=== PATIENT | male | born 1985 | race Caucasian/White ===

== ENCOUNTER 2016-07-15 14:55 | Observation (INO) | payer OTHER ==
[2016-07-15 15:29] LABS: ABSOLUTE BASOPHILS # (AUTO) 0.1 10^3/uL (0.0-0.2); ABSOLUTE EOSINOPHILS # (AUTO) 0.3 10^3/uL (0.0-0.6); ABSOLUTE LYMPHOCYTES (AUTO) 2.6 10^3/uL (0.5-4.7); ABSOLUTE NEUT (AUTO) 10.6 10^3/uL (1.7-8.2); BASOPHILS % (AUTO) 0.7 % (0-2); HEMATOCRIT 49.7 % (37.9-51.0); HEMOGLOBIN 17.4 g/dL (13.5-17.0); HGB HCT DIFFERENCE 2.5; LYMPHOCYTES % (AUTO) 17.5 % (13-45); MEAN CORPUSCULAR HGB CONC 34.9 g/dL (32.0-36.0); MEAN CORPUSCULAR VOLUME 92 fl (80-97); MONOCYTES % (AUTO) 7.1 % (3-13); RED BLOOD COUNT 5.43 10^6/uL (4.35-5.55); RED CELL DISTRIBUTION WIDTH 13.1 % (11.5-14.0); SEGMENTED NEUTROPHILS % (AUTO) 72.7 % (42-78); WHITE BLOOD COUNT 14.6 10^3/uL (4.0-10.5)
[2016-07-15 15:46] LABS: APPEARANCE,URINE CLEAR; BILIRUBIN,URINE NEGATIVE (NEGATIVE); GLUCOSE, URINE NEGATIVE (NEGATIVE); KETONES,URINE NEGATIVE (NEGATIVE); LEUKOCYTE ESTERASE,URINE NEGATIVE (NEGATIVE); NITRITE,URINE NEGATIVE (NEGATIVE); PROTEIN,URINE NEGATIVE (NEGATIVE); URINE SPECIFIC GRAVITY 1.014
[2016-07-15 15:49] LABS: ALANINE AMINOTRANSFERASE 37 U/L (21-72); ALKALINE PHOSPHATASE 56 U/L (38-126); ANION GAP 13 (5-19); ASPARTATE AMINO TRANSFERASE 26 U/L (17-59); BILIRUBIN,TOTAL 0.8 mg/dL (0.2-1.3); BLOOD UREA NITROGEN 9 mg/dL (7-20); CALCIUM 9.6 mg/dL (8.4-10.2); CARBON DIOXIDE 27 mmol/L (22-30); CHLORIDE 104 mmol/L (98-107); CREATININE RESULT 0.71 mg/dL (0.52-1.25); GLUCOSE 94 mg/dL (75-110); POTASSIUM 4.5 mmol/L (3.6-5.0); SODIUM 144.3 mmol/L (137-145); TOTAL PROTEIN 6.8 g/dL (6.3-8.2)
--- NOTE | 2016-07-15 17:45 | PSYCHOLOGICAL NOTE ---
Psych Note - Psych Note Psych Note: Patient is a 31 year old male who presents via [facility] under IVC, petitioned by his for dangerous, threatening behaviors. Patient now satates he is fine and states all of the issues have been addressed. Patient reports he was seen by the [place], and has a job interview tomorrow and needs his papers for discharge. Patient denies SI/HI. Patient will not actually directly answer any questions, other than to say "fine," or "its been addressed" etc. Patient states he went down hill when he was traveling for work and alone and away from loved ones and supports. Patient states he wants his papers. Note, patient did eventually endorse risk taking behaviors, to include speeding, excessive drinking, 'being back in [place] for a few nights" not fastening his safety harness, etc. Patient would not otherwise elaborate on his symptoms or needs at this time. Patient states he knows this particular individual is a terrorists and knows he was making a pipe bomb. 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 Note, played a recording of patient threatening murder suicide in regards to his girlfriend's friend he thinks is a terrorist. She additionally reports he is irrational and can be violent, towards self, property, people, and animals ( family dogs). She states today he abruptly stated he was returning to [place], and his girlfriend contacted her with concerns for safety. Note, had numerous text messages substantiating concerns. She denies knowing of SA, beyond daily ETOH and chain smoking cigarettes while on his phone outside. She states he returned from [place] to get help 2 weeks ago, and [facility]. Patient is A&O. Mood is anxious and irritable with congruent affect. Patient denies SI/HI. Patient denies A/V H; delusions were noted. Thought processes were guarded. Conversational speech was labile for rate, tone, and prosody. Intellectual abilities were estimated within average range. Attention and focus were fair. Insight, judgment, and impulse control were poor. Posttraumatic Stress Disorder, per history Patient is recommended to remain under IVC and seek 24 hour inpatient psychiatric commitment. Patient is a danger to himself and others. Patient, even while in the Department demonstrates mood lability and struggles to self regulate, demonstrates poor insight and impulse control, and is guarded with his information. While patient does deny the reports of harmful threats, voice recordings and text messages were provided to substantiate these claims. I consulted with Dr. Umana regarding the care and management of this patient. ED MD is in agreement with disposition and recommendations.
[2016-07-15] MEDS: HALOPERIDOL LACTATE INJ 5 MG/1 ML VIAL IM PRN (18:00)
[2016-07-15] MEDS ORDERED: OLANZAPINE 5 MG TABLET PO SCH (18:15)
[2016-07-15] MEDS ORDERED: BENZTROPINE MESYLATE 1 MG TABLET PO SCH (18:15)
[2016-07-15] MEDS ORDERED: OLANZAPINE 5 MG TABLET PO ONE (18:45)
[2016-07-15] MEDS ORDERED: BENZTROPINE MESYLATE 1 MG TABLET PO ONE (18:45)
[2016-07-15 18:48] LABS: URINE BARBITURATES SCREEN NEGATIVE; URINE METHADONE SCREEN NEGATIVE; URINE OPIATES LOW NEGATIVE; URINE PHENCYCLIDINE SCREEN NEGATIVE
[2016-07-15] MEDS ORDERED: DIVALPROEX SODIUM 500 MG TAB.SR.24H PO ONE (19:00)
[2016-07-15] MEDS ORDERED: DIVALPROEX SODIUM 500 MG TAB.SR.24H PO SCH (19:00)
--- NOTE | 2016-07-15 19:08 | ER Document Report ---
ED Psych Disorder / Suicide - General Chief Complaint: Psych Problem Stated Complaint: PSYCH EVAL Notes: The patient is a 31-year-old male, past medical history PTSD, depression, presents on and IVC filled out by his girlfriend after he is having homicidal ideation. He thinks that there is a terrorist up [place] that is building a pipe bomb. His girlfriend has multiple text messages and voicemails that confirm his homicidal ideation. Patient states that he has no SI or HI and that he has a job interview tomorrow. He then states that he was having homicidal ideation , but this is resolving because he is not traveling is much any more. He denies any other medical complaints at this time. TRAVEL OUTSIDE OF THE [place] IN LAST 30 DAYS: No Past Medical History - General Information source: Patient, Relative - Social History Smoking Status: Unknown if Ever Smoked Family History: Reviewed & Not Pertinent Psychiatric Medical History: Reports: Hx Depression - PTSD Review of Systems - Review of Systems Notes: REVIEW OF SYSTEMS: CONSTITUTIONAL: -fevers, -chills EENT: -eye pain, -difficulty swallowing, -nasal congestion CARDIOVASCULAR:-chest pain, -syncope. RESPIRATORY: -cough, -SOB GASTROINTESTINAL: -abdominal pain, - nausea, -vomiting, -diarrhea GENITOURINARY: -dysuria, -hematuria MUSCULOSKELETAL: -back pain, -neck pain SKIN: -rash or skin lesions. HEMATOLOGIC: -easy bruising or bleeding. LYMPHATIC: -swollen, enlarged glands. NEUROLOGICAL: -altered mental status or loss of consciousness, -headache, - neurologic symptoms PSYCHIATRIC: -anxiety, -depression, +HI, -SI ALL OTHER SYSTEMS REVIEWED AND NEGATIVE. Physical Exam - Vital signs Vitals: Temp Pulse Resp BP Pulse Ox 97.5 F 43 L 14 104/62 100 07/15/16 23:24 07/15/16 23:24 07/15/16 23:24 07/15/16 23:24 07/15/16 23:24 - Notes Notes: PHYSICAL EXAMINATION: GENERAL: Well-appearing, well-nourished and in no acute distress. HEAD: Atraumatic, normocephalic. EYES: Pupils equal round and reactive to light, extraocular movements intact, sclera anicteric, conjunctiva are normal. ENT: nares patent, oropharynx clear without exudates. Moist mucous membranes. NECK: Normal range of motion, supple without lymphadenopathy LUNGS: Breath sounds clear to auscultation bilaterally and equal. No wheezes rales or rhonchi. HEART: Bradycardia. Regular rhythm without murmurs ABDOMEN: Soft, nontender, normoactive bowel sounds. No guarding, no rebound. No masses appreciated. EXTREMITIES: Normal range of motion, no pitting or edema. No cyanosis. NEUROLOGICAL: Cranial nerves grossly intact. Normal speech, normal gait. Normal sensory, motor, and reflex exams. PSYCH: Normal mood, normal affect. SKIN: Warm, Dry, normal turgor, no rashes or lesions noted. Course - Re-evaluation Re-evalutation: Patient has sinus bradycardia, but his blood pressures are remaining normal. His EKG shows a sinus bradycardia with diffuse ST elevations, indicative of pericarditis. Patient clinically has no chest pain, shortness of breath and is not acting like a patient with pericarditis. Patient's bradycardia may be normal because he is a athletic, young male. He is asymptomatic with the bradycardia. Patient on IVC. Will continue to uphold IVC due to his homicidal ideation. Psych recommendations include inpatient psychiatric stay due to his unstable mental condition at this time. - Vital Signs Vital signs: Temp Pulse Resp BP Pulse Ox 97.5 F 43 L 12 98/58 L 96 07/15/16 23:24 07/15/16 23:24 07/15/16 23:47 07/15/16 23:48 07/15/16 23:48 - Laboratory Result Diagrams: 07/15/16 15:15 07/15/16 15:15 Laboratory results interpreted by me: 07/15/16 07/15/16 15:15 15:15 WBC 14.6 H Hgb 17.4 H Absolute Neutrophils 10.6 H Urine Urobilinogen 4.0 H - EKG Interpretation by Nv EKG shows normal: Sinus rhythm, [place], Intervals, QRS Complexes, ST-T Waves - diffuse ST elevations, no reciprocal changes Rate: Bradycardia Discharge - Discharge Clinical Impression: Homicidal ideation, PTSD (post-traumatic stress disorder) Condition: Serious Disposition: PSYCH HOSP/UNIT
--- NOTE | 2016-07-15 20:46 | EKG REPORT ---
SEVERITY:- NORMAL ECG - SINUS RHYTHM : Confirmed by: Darshana Loomis MD 15-Jul-2016 20:46:05
[2016-07-16] MEDS ORDERED: NORMAL SALINE 1000 ML 1,000 ML IV ONE (00:26)
--- NOTE | 2016-07-16 08:03 | EKG REPORT ---
SEVERITY:- ABNORMAL ECG - SINUS RHYTHM VENTRICULAR TRIGEMINY ST ELEVATION SUGGESTS NORMAL VARIANT : Confirmed by: Kendall Wylie MD 16-Jul-2016 08:03:22
--- NOTE | 2016-07-16 08:03 | EKG REPORT ---
SEVERITY:- ABNORMAL ECG - SINUS BRADYCARDIA ST ELEVATION SUGGESTS NORMAL VARIANT. : Confirmed by: Kendall Wylie MD 16-Jul-2016 08:02:51
[2016-07-16] MEDS ORDERED: OLANZAPINE 5 MG TABLET PO SCH (10:00)
--- NOTE | 2016-07-16 10:15 | ER Document Report ---
Doctor's Note Notes: 07/16/16 10:13 Rounds: Chart reviewed and patient interviewed. Patient seems to be rather calm , compared to his previous evaluations and notes. Answers questions appropriately. Says he's never had anybody telling he has any problems with his heart. We have noticed sinus bradycardia as well as intermittent ventricular trigeminy on EKGs since he's been here in the emergency department. Patient denies any chest pains or any symptoms suggestive of any heart disease or condition. Other lab findings are a white count of 14,600 without signs of infections anywhere. Also, his hemoglobin is 17.4. All other labs including thyroid function and magnesiums are normal. With the exception of his slower heart rate than normal, in the 40s, patient's vital signs of been normal. Patient appears to be medically stable for transfer or discharge. I'm going to try to get a cardiology consult on this patient to determine the safety of prescribing recommended antipsychotic medications. Marcelo Acosta M.D. 07/16/16 11:19 Gel Coat Sprayer, Dr. Mendoza, recommends patient be admitted to telemetry and monitored while medications are started to make sure he doesn't have an adverse event. Hospitalist notified and patient will be admitted to telemetry.
[2016-07-16] MEDS: BENZTROPINE MESYLATE 1 MG TABLET PO SCH (10:22)
[2016-07-16] MEDS: DIVALPROEX SODIUM 500 MG TAB.SR.24H PO SCH ×2 (10:22→17:59)
[2016-07-16 11:23] LABS: ABSOLUTE BASOPHILS # (AUTO) 0.1 10^3/uL (0.0-0.2); ABSOLUTE EOSINOPHILS # (AUTO) 0.3 10^3/uL (0.0-0.6); ABSOLUTE LYMPHOCYTES (AUTO) 2.2 10^3/uL (0.5-4.7); ABSOLUTE MONOCYTES (AUTO) 0.7 10^3/uL (0.1-1.4); ABSOLUTE NEUT (AUTO) 2.1 10^3/uL (1.7-8.2); EOSINOPHILS % (AUTO) 4.9 % (0-6); HEMATOCRIT 46.1 % (37.9-51.0); HEMOGLOBIN 15.9 g/dL (13.5-17.0); HGB HCT DIFFERENCE 1.6; LYMPHOCYTES % (AUTO) 41.8 % (13-45); MEAN CORPUSCULAR HEMOGLOBIN 31.6 pg (27.0-33.4); MEAN CORPUSCULAR HGB CONC 34.5 g/dL (32.0-36.0); MEAN CORPUSCULAR VOLUME 92 fl (80-97); RED BLOOD COUNT 5.03 10^6/uL (4.35-5.55); RED CELL DISTRIBUTION WIDTH 12.9 % (11.5-14.0); SEGMENTED NEUTROPHILS % (AUTO) 39.3 % (42-78); WHITE BLOOD COUNT 5.3 10^3/uL (4.0-10.5)
[2016-07-16 11:33] LABS: ALANINE AMINOTRANSFERASE 34 U/L (21-72); ALBUMIN 3.3 g/dL (3.5-5.0); ALKALINE PHOSPHATASE 49 U/L (38-126); ANION GAP 7 (5-19); ASPARTATE AMINO TRANSFERASE 22 U/L (17-59); BILIRUBIN,DIRECT 0.1 mg/dL (0.0-0.4); BILIRUBIN,TOTAL 0.8 mg/dL (0.2-1.3); BLOOD UREA NITROGEN 11 mg/dL (7-20); CALCIUM 9.2 mg/dL (8.4-10.2); CARBON DIOXIDE 28 mmol/L (22-30); CHLORIDE 108 mmol/L (98-107); CREATINE KINASE 254 U/L (55-170); CREATININE RESULT 0.65 mg/dL (0.52-1.25); GLUCOSE 105 mg/dL (75-110); POTASSIUM 4.4 mmol/L (3.6-5.0); SODIUM 143.3 mmol/L (137-145); TOTAL PROTEIN 5.8 g/dL (6.3-8.2)
[2016-07-16 11:43] LABS: CREATINE KINASE MB 2.72 ng/mL (<4.55)
[2016-07-16 11:44] LABS: TROPONIN I < 0.012 ng/mL
[2016-07-16 11:58] LABS: ERYTHROCYTE SEDIMENTATION RATE 1 mm/hr (0-15)
--- NOTE | 2016-07-16 13:43 | EKG REPORT ---
SEVERITY:- NORMAL ECG - SINUS RHYTHM WITH PACS. ST ELEV, PROBABLE NORMAL EARLY REPOL PATTERN : Confirmed by: Kendall Wylie MD 16-Jul-2016 13:42:30
[2016-07-16] MEDS: OLANZAPINE 5 MG TABLET PO SCH (13:50)
--- NOTE | 2016-07-16 15:42 | PDOC H&P ---
History of Present Illness History of Present Illness: GULSHAN RUIZ is a 31 year old male past medical history PTSD, depression, presents on and IVC filled out by his girlfriend after he is having homicidal ideation. He thinks that there is a terrorist up [place] that is building a pipe bomb. His girlfriend has multiple text messages and voicemails that confirm his homicidal ideation. Patient states that he has no SI or HI and that he has a job interview tomorrow. He then states that he was having homicidal ideation, but this is resolving because he is not traveling is much any more. He denies any other medical complaints at this time. While being evaluated in the ED patient was noted to be bradycardic with a heart rate in the 40s and at time he was in trigeminy Cardiology consultation was obtained with Dr. Burleson who advised admission for observation And an echocardiogram was ordered Patient has no chest pain no short of breath His EKG is normal ; his initial troponins are normal he was subsequently admitted under hospitalist service to telemetry unit for observation Patient is IVC with a sitter Past Medical History Psychiatric Medical History: Reports: Depression - PTSD Past Surgical History Past Surgical History: Reports: Other - Bilateral cataract surgery Social History Information Source: Patient Smoking Status: Current Every Day Smoker Frequency of Alcohol Use: Occasional Hx Recreational Drug Use: No - Advance Directive Resuscitation Status: Full Code Family History Family History: Reviewed & Not Pertinent Parental Family History Reviewed: Yes Children Family History Reviewed: Yes Sibling(s) Family History Reviewed.: Yes Medication/Allergy Home Medications: Fluoxetine HCl [Prozac] 10 mg PO DAILY 07/16/16 Allergies/Adverse Reactions: lactose Adverse Reaction (Verified 07/16/16 09:13) Review of Systems Constitutional: ABSENT: chills, fever(s), headache(s), weight gain, weight loss Eyes: ABSENT: visual disturbances Ears: ABSENT: hearing changes Cardiovascular: ABSENT: chest pain, dyspnea on exertion, edema, orthropnea, palpitations Respiratory: ABSENT: cough, hemoptysis Gastrointestinal: ABSENT: abdominal pain, constipation, diarrhea, hematemesis, hematochezia, nausea, vomiting Genitourinary: ABSENT: dysuria, hematuria Musculoskeletal: ABSENT: joint swelling Integumentary: ABSENT: rash, wounds Neurological: ABSENT: abnormal gait, abnormal speech, confusion, dizziness, focal weakness, syncope Psychiatric: PRESENT: homidical ideation, suicidal ideation Endocrine: ABSENT: cold intolerance, heat intolerance, polydipsia, polyuria Hematologic/Lymphatic: ABSENT: easy bleeding, easy bruising Physical Exam Vital Signs: Temp Pulse Resp BP Pulse Ox 97.9 F 43 L 13 104/60 97 07/16/16 12:32 07/15/16 23:24 07/16/16 15:01 07/16/16 15:00 07/16/16 15:01 General appearance: PRESENT: no acute distress, well-developed, well-nourished Head exam: PRESENT: atraumatic, normocephalic Eye exam: PRESENT: conjunctiva pink, EOMI, PERRLA. ABSENT: scleral icterus Ear exam: PRESENT: normal external ear exam Mouth exam: PRESENT: moist, tongue midline Neck exam: ABSENT: carotid bruit, JVD, lymphadenopathy, thyromegaly Respiratory exam: PRESENT: clear to auscultation [place]. ABSENT: rales, rhonchi, wheezes Cardiovascular exam: PRESENT: RRR. ABSENT: diastolic murmur, rubs, systolic murmur Pulses: PRESENT: normal dorsalis pedis pul Vascular exam: PRESENT: normal capillary refill GI/Abdominal exam: PRESENT: normal bowel sounds, soft. ABSENT: distended, guarding, mass, organolmegaly, rebound, tenderness Rectal exam: PRESENT: deferred Extremities exam: PRESENT: full ROM. ABSENT: calf tenderness, clubbing, pedal edema Neurological exam: PRESENT: alert, awake, oriented to person, oriented to place , oriented to time, oriented to situation, CN II-XII grossly intact. ABSENT: motor sensory deficit Psychiatric exam: PRESENT: appropriate affect, normal mood. ABSENT: homicidal ideation, suicidal ideation Skin exam: PRESENT: dry, intact, warm. ABSENT: cyanosis, rash Results Laboratory Results: 07/16/16 11:00 07/16/16 11:00 07/15/16 07/15/16 07/15/16 15:15 15:15 15:15 WBC 14.6 H RBC 5.43 Hgb 17.4 H Hct 49.7 MCV 92 MCH 32.0 MCHC 34.9 RDW 13.1 Plt Count 274 Seg Neutrophils % 72.7 Lymphocytes % 17.5 Monocytes % 7.1 Eosinophils % 2.0 Basophils % 0.7 Absolute Neutrophils 10.6 H Absolute Lymphocytes 2.6 Absolute Monocytes 1.0 Absolute Eosinophils 0.3 Absolute Basophils 0.1 Sodium 144.3 Potassium 4.5 Chloride 104 Carbon Dioxide 27 Anion Gap 13 BUN 9 Creatinine 0.71 Est GFR ( Amer) > 60 Est GFR (Non-Af Amer) > 60 Glucose 94 Calcium 9.6 Magnesium Total Bilirubin 0.8 AST 26 ALT 37 Alkaline Phosphatase 56 Total Protein 6.8 Albumin 4.0 TSH Urine Color YELLOW Urine Appearance CLEAR Urine pH 7.0 Ur Specific [place] 1.014 Urine Protein NEGATIVE Urine Glucose (UA) NEGATIVE Urine Ketones NEGATIVE Urine Blood NEGATIVE Urine Nitrite NEGATIVE Ur Leukocyte Esterase NEGATIVE Urine WBC (Auto) 1 Urine RBC (Auto) 0 07/15/16 07/15/16 07/16/16 15:15 15:15 11:00 WBC 5.3 RBC 5.03 Hgb 15.9 Hct 46.1 MCV 92 MCH 31.6 MCHC 34.5 RDW 12.9 Plt Count 232 Seg Neutrophils % 39.3 L Lymphocytes % 41.8 Monocytes % 13.0 Eosinophils % 4.9 Basophils % 1.0 Absolute Neutrophils 2.1 Absolute Lymphocytes 2.2 Absolute Monocytes 0.7 Absolute Eosinophils 0.3 Absolute Basophils 0.1 Sodium Potassium Chloride Carbon Dioxide Anion Gap BUN Creatinine Est GFR ( Amer) Est GFR (Non-Af Amer) Glucose Calcium Magnesium 1.9 Total Bilirubin AST ALT Alkaline Phosphatase Total Protein Albumin TSH 0.68 Urine Color Urine Appearance Urine pH Ur Specific [place] Urine Protein Urine Glucose (UA) Urine Ketones Urine Blood Urine Nitrite Ur Leukocyte Esterase Urine WBC (Auto) Urine RBC (Auto) 07/16/16 11:00 WBC RBC Hgb Hct MCV MCH MCHC RDW Plt Count Seg Neutrophils % Lymphocytes % Monocytes % Eosinophils % Basophils % Absolute Neutrophils Absolute Lymphocytes Absolute Monocytes Absolute Eosinophils Absolute Basophils Sodium 143.3 Potassium 4.4 Chloride 108 H Carbon Dioxide 28 Anion Gap 7 BUN 11 Creatinine 0.65 Est GFR ( Amer) > 60 Est GFR (Non-Af Amer) > 60 Glucose 105 Calcium 9.2 Magnesium Total Bilirubin 0.8 AST 22 ALT 34 Alkaline Phosphatase 49 Total Protein 5.8 L Albumin 3.3 L TSH Urine Color Urine Appearance Urine pH Ur Specific [place] Urine Protein Urine Glucose (UA) Urine Ketones Urine Blood Urine Nitrite Ur Leukocyte Esterase Urine WBC (Auto) Urine RBC (Auto) 03/20/17 03/20/17 11:00 11:00 Creatine Kinase 254 H CK-MB (CK-2) 2.72 Troponin I < 0.012 EKG Comments: Sinus bradycardia Assessment & Plan - Diagnosis (1) Suicidal ideation Is this a current diagnosis for this admission?: Yes (2) Bradycardia Is this a current diagnosis for this admission?: Yes (3) Cardiac arrhythmia Qualifiers: Arrhythmia type: unspecified cardiac arrhythmia Qualified Code(s): I49.9 - Cardiac arrhythmia, unspecified Is this a current diagnosis for this admission?: Yes (4) Homicidal ideation Is this a current diagnosis for this admission?: Yes (5) PTSD (post-traumatic stress disorder) Is this a current diagnosis for this admission?: Yes - Time Time Spent with patient: Patient was evaluated by psychiatry Continue treatment advised Depjesse and Yajaira Continue the one-to-one watch Patient is IVC Reevaluation by psychiatry in 24 hours Cardiac arrhythmia Likely to be benign in etiology We will obtain serial cardiac enzymes Echocardiogram also will be obtained Monitor overnight Time Spent: 50 to 70 Minutes - Inpatient Certification Based on my medical assessment, after consideration of the patient's comorbidities, presenting symptoms, or acuity I expect that the services needed warrant INPATIENT care.: Yes I certify that my determination is in accordance with my understanding of Medicare's requirements for reasonable and necessary INPATIENT services [42 CFR 412.3e].: Yes Medical Necessity: Need Close Monitoring Due to Risk of Patient Decompensation, Need For Continuous Telemetry Monitoring
--- NOTE | 2016-07-16 17:28 | PSYCHOLOGICAL NOTE ---
Psych Note - Psych Note Psych Note: Patient is a 31 year old male under IVC after he made threats regarding a murder suicide involving an individual he has identified as a terrorist. Patient today has been admitted to Hospitalist's services due to bradychardia and is pending consultation from block mechanic. Hospitalists has requested patient be reconsulted within 24 hours of admission. Will track. Posttraumatic Stress Disorder, per history
[2016-07-16] MEDS ORDERED: ENOXAPARIN SODIUM INJ 40 MG/0.4 ML DISP.SYRIN SUBCUT ONE (19:30)
[2016-07-16] MEDS: HALOPERIDOL LACTATE INJ 5 MG/1 ML VIAL IM PRN (19:37)
--- NOTE | 2016-07-16 19:43 | PDOC CONSULTATION ---
Consultation Consult Date: 07/16/16 Attending physician:: GREG MARISCAL Consult reason:: Bradycardia and increased ventricular ectopy. History of Present Illness Admission Date/PCP: 07/16/16 15:36 Patient complains of: Suicidal ideation History of Present Illness: GULSHAN RUIZ is a 31 year old male past medical history PTSD, depression, presents on and IVC filled out by his girlfriend after he is having homicidal ideation. He thinks that there is a terrorist [place] that is building a pipe bomb. His girlfriend has multiple text messages and voicemails that confirm his homicidal ideation. Patient states that he has no SI or HI and that he has a job interview tomorrow. He then states that he was having homicidal ideation , but this is resolving because he is not traveling is much any more. He denies any other medical complaints at this time. While being evaluated in the ED patient was noted to be bradycardic with a heart rate in the 40s and at time he was in ventricular trigeminy Cardiology consultation was obtained with Dr. Burleson who advised admission for observation And an echocardiogram was ordered, however this has not been performed as yet. Patient has no chest pain no short of breath His EKG is normal ; his initial troponins are normal. Patient does give history of smoking and alcohol use but denied any illicit drug abuse. He was subsequently admitted under hospitalist service to telemetry unit for observation Patient is IVC with a sitter Past Medical History Psychiatric Medical History: Reports: Depression - PTSD Past Surgical History Past Surgical History: Reports: Other - Bilateral cataract surgery Social History Information Source: Patient Smoking Status: Current Every Day Smoker Frequency of Alcohol Use: Occasional Hx Recreational Drug Use: No Drugs: None - Advance Directive Resuscitation Status: Full Code Family History Family History: Reviewed & Not Pertinent, CAD - Describes history of CAD in his father Parental Family History Reviewed: Yes Children Family History Reviewed: NA Sibling(s) Family History Reviewed.: Yes Medication/Allergy Home Medications: Fluoxetine HCl [Prozac] 10 mg PO DAILY 07/16/16 Trazodone HCl 100 mg PO QHS PRN 07/16/16 Allergies/Adverse Reactions: lactose Adverse Reaction (Verified 07/16/16 09:13) Review of Systems Review of Systems: Please see history of present illness and past medical history as wall. Constitutional: No fever or chills reported. Head : No recent chronic headaches, recent head injury. Eyes: No recent eye pain, diplopia, redness, discharge, acute visual changes. Ears: No recent chronic ear pain, acute hearing loss, ear discharge. Oral cavity: No recent ulcerations, bleeding, oral cavity discomfort. Neck: No recent acute neck pain reported. Hematologic: No recent easy bruising or bleeding or hematologic malignancy reported. Lymphatic: No recent lymphatic malignancy, chronic lymphadenopathy reported yet Cardiovascular system review: See history of present illness. Respiratory system review: No recent chronic cough, hemoptysis, blood clots in the lungs reported. Mild Shortness of breath on exertion Gastrointestinal system review: Negative for any recent acute or chronic abdominal pain, hematemesis, melena, recent change in bowel habits. Genitourinary system review: No recent acute or chronic hematuria, flank pain, UTI etc. reported. Skin system review: Negative for any recent abnormal bruising, no rash, no pruritus reported. Neurologic: No prior history of strokes, mini strokes, seizure disorder. Psychologic: History of major psychosis and depression. Currently with suicidal and homicidal ideation. Musculoskeletal: Minor aches and pains reported. No acute joint swelling reported. Endocrine: No recent polyuria, polydipsia, recent heat or cold intolerance. Physical Exam Vital Signs: Temp Pulse Resp BP Pulse Ox 98.1 F 61 18 132/76 H 100 07/16/16 18:14 07/16/16 18:14 07/16/16 18:14 07/16/16 18:14 07/16/16 18:14 Intake & Output 07/15/16 07/16/16 07/17/16 06:59 06:59 06:59 Weight 75.7 kg Exam: GENERAL: well-nourished and in no acute distress. Alert and oriented x3 HEAD: Atraumatic, normocephalic. EYES: Pupils equal round and reactive to light, extraocular movements intact, sclera anicteric, conjunctiva are normal. ENT: TMs normal, nares patent, oropharynx clear without exudates. Moist mucous membranes. No oral ulcerations or bleeding gums noted NECK: supple without lymphadenopathy. Trachea is central. No cervical or axillary lymphadenopathy noted. Carotids are 2+, JVD WNL LUNGS: Respiration seems nonlabored, no significant accessory muscle action noted. Breath sounds clear to auscultation bilaterally and equal noted. No wheezes rales or rhonchi noted. No significant dullness noted on percussion. CHEST: Palpation of the chest wall shows no significant chest wall tenderness. No other significant abnormalities noted. HEART: [place] [employer], No PSH, 1/6 [place] aortic area, 1/6 morejon systolic murmur mitral area, no rubs, no gallops. ABDOMEN: Soft, no significant tenderness appreciated, normoactive bowel sounds. No guarding, no rebound. No rigidity noted . No masses appreciated. EXTREMITIES: Pedal pulses are 1-2+, no calf tenderness noted. No clubbing or cyanosis.trace to 1+ pedal edema noted NEUROLOGICAL: Focused neurological exam showed no significant neurologic deficit. Normal speech, no focal weakness appreciated. PSYCH: Normal mood, normal affect. Judgment and insight within normal limits. SKIN: No significant ecchymosis, rash, ulcerations or signs of pruritus noted. MUSCULOSKELETAL EXAM: No significant joint swelling noted. Results Laboratory Results: 07/16/16 17:08 Troponin I < 0.012 EKG Comments: Multiple EKGs are obtained. All showed sinus rhythm. One EKG shows ventricular trigeminy. No acute ST-T wave changes are noted. Assessment & Plan - Diagnosis (1) Bradycardia Is this a current diagnosis for this admission?: Yes (2) Cardiac arrhythmia Qualifiers: Arrhythmia type: unspecified cardiac arrhythmia Qualified Code(s): I49.9 - Cardiac arrhythmia, unspecified Is this a current diagnosis for this admission?: Yes (3) Homicidal ideation Is this a current diagnosis for this admission?: Yes (4) PTSD (post-traumatic stress disorder) Is this a current diagnosis for this admission?: Yes (5) Suicidal ideation Is this a current diagnosis for this admission?: Yes (6) Tobacco abuse Is this a current diagnosis for this admission?: Yes - Notes Notes: Bradycardia: Exact etiology not clear but could well be related to increased vagal tone. Doubt sick sinus syndrome at his age. Recommend IV fluids. Cardiac dysrhythmia: Ventricular trigeminy: Patient does increased ventricular ectopy. Have recommended a 2-D echocardiogram to be performed to rule out structural cardiac abnormalities. Will also schedule patient for a nuclear stress test. Homicidal ideation: Patient being observed. Suicidal ideation: Patient being observed. Tobacco abuse: Patient abstaining recommend nicotine patch. Have recommended that patient be started on all his psychoactive medication and other medications as are being planned by psychologist while he is under observation. It was felt that it's best to admit patient in view of significant cardiac dysrhythmia and since patient would need psychotropic medications which have potential cardiac toxicity. Will schedule patient for a nuclear stress test tomorrow and review 2-D echocardiogram results when performed. In the meantime make sure electrolytes are WNL. - Time Time Spent: 30 to 50 Minutes - CODE STATUS was discussed, patient remains full code. Surrogate decision-maker not identified but likely to be his dad. Multiple medical problems were addressed.More than 50% of the time spent coordinating care, discussing management plans with involved caregivers. Management plans discussed with involved personnels. Medical decision making was of moderate complexity.
[2016-07-16 21:03] LABS: CHOLESTEROL 134.77 mg/dL (0-200); Direct HDL 29 mg/dL (>40); TRIGLYCERIDES 110 mg/dL (<150)
[2016-07-16 21:14] LABS: DIRECT LDL 89 mg/dL (<100)
[2016-07-17] MEDS: HALOPERIDOL LACTATE INJ 5 MG/1 ML VIAL IM PRN ×3 (01:12→11:29)
[2016-07-17 06:09] LABS: CHOLESTEROL 146.05 mg/dL (0-200); Direct HDL 32 mg/dL (>40); TRIGLYCERIDES 88 mg/dL (<150)
[2016-07-17 06:20] LABS: DIRECT LDL 87 mg/dL (<100)
--- NOTE | 2016-07-17 08:11 | EKG REPORT ---
SEVERITY:- ABNORMAL ECG - SINUS RHYTHM VENTRICULAR BIGEMINY ST ELEVATION SUGGESTS NORMAL VARIANT. : Confirmed by: Kendall Wylie MD 17-Jul-2016 08:11:07
[2016-07-17] MEDS: OLANZAPINE 5 MG TABLET PO SCH ×2 (12:12→17:37)
[2016-07-17] MEDS: DIVALPROEX SODIUM 500 MG TAB.SR.24H PO SCH ×2 (12:12→17:37)
[2016-07-17] MEDS: BENZTROPINE MESYLATE 1 MG TABLET PO SCH (12:12)
[2016-07-17] MEDS: FLUOXETINE HCL 20 MG/5 ML UDCUP PO SCH (12:12)
[2016-07-17] MEDS: ENOXAPARIN SODIUM INJ 40 MG/0.4 ML DISP.SYRIN SUBCUT SCH (12:22)
--- NOTE | 2016-07-17 12:29 | XCELERA REPORT ---
[address] [address] Transthoracic Echocardiogram Report Name: GULSHAN RUIZ Age: 31 yrs Gender: Male : 1985 Patient Status: Inpatient Patient Location: 3S\S\328\S\A Study Date: 07/17/2016 08:55 AM Height: 73 in Weight: 168 lb BSA: 2.0 m2 Procedure: A complete two-dimensional transthoracic echocardiogram was performed (2D, M-mode, spectral and color flow Doppler). The study was technically difficult with many images being suboptimal in quality. Reason For Study: bradycardia Ordering Physician: GREG MARISCAL Performed By: No Townsend Interpretation Summary The left ventricular ejection fraction is normal. Doppler measurements suggest normal left ventricular diastolic function There is borderline concentric left ventricular hypertrophy. The left ventricle is grossly normal size. Wall motion cannot be accurately commented on, but no definite regional wall motion abnormalities noted. The right ventricle is grossly normal size. The right ventricular systolic function is normal. The left atrial size is normal. The right atrium is normal. There is no mitral valve stenosis. There is a trace amount of mitral regurgitation No aortic regurgitation is present. There is no aortic valve stenosis There is no pericardial effusion. MMode/2D Measurements \T\ Calculations RVDd: 2.9 cm LVIDd: 4.9 cm FS: 35.6 % Ao root diam: 2.6 cm IVSd: 1.1 cm LVIDs: 3.2 cm EDV(Teich): 113.9 ml LVPWd: 1.1 cm ESV(Teich): 40.0 ml Ao root area: 5.4 cm2 EF(Teich): 64.9 % LA dimension: 3.4 cm Doppler Measurements \T\ Calculations MV E max shawn: MV P1/2t max shawn: Ao V2 max: LV V1 max P.1 cm/sec 72.6 cm/sec 128.7 cm/sec 4.5 mmHg MV A max shawn: MV P1/2t: 69.0 msec Ao max PG: LV V1 max: 39.0 cm/sec 6.6 mmHg 106.1 cm/sec MV E/A: 1.8 MVA(P1/2t): 3.2 cm2 MV dec slope: 308.0 cm/sec2 PA V2 max: TR max shawn: 90.3 cm/sec 266.0 cm/sec PA max PG: TR max P.3 mmHg 3.3 mmHg Left Ventricle The left ventricle is grossly normal size. There is borderline concentric left ventricular hypertrophy. The left ventricular ejection fraction is normal. Doppler measurements suggest normal left ventricular diastolic function. Wall motion cannot be accurately commented on, but no definite regional wall motion abnormalities noted. Right Ventricle The right ventricle is grossly normal size. There is normal right ventricular wall thickness. The right ventricular systolic function is normal. Atria The right atrium is normal. The left atrial size is normal. Interarterial septum not well visualized and not well dopplered. Cannot comment on ASD/PFO presence. Mitral Valve The mitral valve is grossly normal. There is no mitral valve stenosis. There is a trace amount of mitral regurgitation. Aortic Valve The aortic valve is grossly normal. There is no aortic valve stenosis. No aortic regurgitation is present. Tricuspid Valve The tricuspid valve is not well visualized, but is grossly normal. There is no tricuspid stenosis. There is a trace or physiologic amount of tricuspid regurgitation. Right ventricular systolic pressure is at the upper limits of normal. Pulmonic Valve The pulmonic valve is not well visualized. Great Vessels The aortic root is not well visualized. Effusions There is no pericardial effusion. : GREG MARISCAL > Denise Burleson
[2016-07-17] MEDS ORDERED: AMINOPHYLLINE INJ/PF 250 MG/10 ML SDV IV ONE (14:39)
[2016-07-17] MEDS ORDERED: REGADENOSON INJ 0.4 MG/5 ML DISP.SYRIN IV ONE (14:39)
--- NOTE | 2016-07-17 16:46 | PDOC PROGRESS REPORT ---
Subjective Progress Note for:: 07/17/16 Subjective:: Reason for visit: Follow-up chest pain and homicidal ideations Hospital course: Per H&P "GULSHAN RUIZ is a 31 year old male past medical history PTSD, depression, presents on and IVC filled out by his girlfriend after he is having homicidal ideation. He thinks that there is a terrorist [place] that is building a pipe bomb. His girlfriend has multiple text messages and voicemails that confirm his homicidal ideation. Patient states that he has no SI or HI and that he has a job interview tomorrow. He then states that he was having homicidal ideation, but this is resolving because he is not traveling is much any more. He denies any other medical complaints at this time. While being evaluated in the ED patient was noted to be bradycardic with a heart rate in the 40s and at time he was in trigeminy Cardiology consultation was obtained with Dr. Burleson who advised admission for observation And an echocardiogram was ordered Patient has no chest pain no short of breath His EKG is normal ; his initial troponins are normal he was subsequently admitted under hospitalist service to telemetry unit for observation Patient is IVC with a sitter" Patient was admitted overnight and monitored on telemetry demonstrating cardiac dysrhythmia with occasional trigeminy and multiple PVCs. He underwent cardiology consult who recommended echocardiogram and Cardiolite stress test. Echocardiogram shows borderline concentric left ventricle hypertrophy, trace mild mitral regurgitation and no other significant abnormalities. Stress test results are still pending as of this dictation. Mental health has evaluated patient and is currently recommending inpatient management once we clear him from a cardiac standpoint. Subjective: I did not broach the subject of his homicidal and suicidal ideations as he quickly became quite agitated. He currently denies chest pain or palpitations. His reports that he continues to speak of confronting the terrorist with a pipe bomb in [place] and that he intends to get out of this facility and "disappeared" until he can take care of business. Physical Exam Vital Signs: Temp Pulse Resp BP Pulse Ox 98.2 F 56 L 16 123/62 97 07/17/16 15:34 07/17/16 15:34 07/17/16 15:34 07/17/16 15:34 07/17/16 15:34 Intake & Output 07/16/16 07/17/16 07/18/16 06:59 06:59 06:59 Intake Total 305 120 Balance 305 120 Weight 76.8 kg EXAM GENERAL: NAD; well developed, well nourished; no obese; alert and oriented to person HEENT: normocephalic, atraumatic; no conjunctival injection, no scleral icterus ; oral mucosa moist; RESPIRATORY: no accessory muscle use, no increased WOB, good air entry bilaterally; no wheezes, rales, rhonchi; no inspiratory crackles CARDIO: no JVD; remains bradycardic with ectopy noted on the monitor, mostly PVCs at this point; no systolic murmur; no tachycardia; chest wall nontender to palpation GI: soft; nondistended; normal bowel sounds; no rebound, rigidity, guarding; nontender VASCULAR: no abdominal bruit; no pallor; 2+ radial, DP pulse; normal capillary refill EXTREMITIES: no calf tender; no palpable cords in calf; no clubbing, cyanosis , pedal edema PSYCH: normal affect, normal mood SKIN: warm; moist; no petechiae; no telengectasias; no jaundice; no rash Results Laboratory Results: 07/17/16 07/17/16 05:17 05:17 Triglycerides 88 Cholesterol 146.05 LDL Cholesterol Direct 87 VLDL Cholesterol 18.0 HDL Cholesterol 32 L TSH 0.86 07/16/16 07/16/16 17:08 23:37 Troponin I < 0.012 < 0.012 Impressions: Chest X-Ray 07/17/16 12:46 IMPRESSION: NO SIGNIFICANT RADIOGRAPHIC FINDING IN THE CHEST. Assessment & Plan - Diagnosis (1) Bradycardia Is this a current diagnosis for this admission?: YesPlan: Workup underway, appreciate cardiology's input. Patient currently asymptomatic regarding his bradycardia. Avoid AV ajith blocking agents. (2) Homicidal ideation Is this a current diagnosis for this admission?: YesPlan: Currently under an IVC with ongoing mental health evaluation. (3) PTSD (post-traumatic stress disorder) Is this a current diagnosis for this admission?: YesPlan: As above (4) Suicidal ideation Is this a current diagnosis for this admission?: YesPlan: As above (5) Tobacco abuse Is this a current diagnosis for this admission?: YesPlan: Cessation counseling, care tabetic patient's current mental state. - Time Time Spent with patient: 15-24 minutes Anticipated discharge: Other - Inpatient psychiatric facility
[2016-07-17] MEDS ORDERED: HALOPERIDOL LACTATE INJ 5 MG/1 ML VIAL IM PRN (16:53)
--- NOTE | 2016-07-17 17:05 | PSYCHOLOGICAL NOTE ---
Psych Note - Psych Note Psych Note: conducted check in with patient who is a 31 year old male under IVC for SI/HI and who has also been admitted to the [facility] for concerns related to his cardiovascular health. A review of patient's record suggests he continue to demonstrate mood lability and difficulty self regulating when upset. There was a noted episode of patient yelling at his , who was then escorted out of room for safety. Patient today states he is ready to go, and needs to go and find a job. Patient states he is irate that he missed his interview. HE states he is also upset that [place] not [place] assisting a friend get his house prepared to be sold, and also for court. Patient was asked to clarify what the court date was for, which he initially alluded that he was required to be at the court date via subpoena; however, eventually acknowledged that there was no subpoena, nor was he asked to be there, but instead wanted to be there. Patient reports he feels no difference with the medications. He did endorse feeling tired. Patient's girlfriend, states: left [facility] [place] requesting return contact. Patient's , Pamela is bedside and states the patient was calmer today. She reports he was cooperative and calm around their young daughter. inquired into the process moving forward in regards to placements, the IVC, etc. Attempted to answer all questions to the best of my ability and clarified that once the patient is medically cleared, the placement search will begin. Patient is A&O. Mood is irritable; however, significantly calmer than Saturday. Affect was normal. Patient denies suicidal/homicidal ideations, intent, plan, or means. Patient denies A/V H; delusions not noted. Thought processes were goal oriented towards discharge, but otherwise guarded. Conversational speech was WNL. Intellectual abilities were estimated within average range. Attention and focus were fair. Insight, judgment, and impulse control were poor Posttraumatic Stress Disorder, per history Patient is recommended to remain under IVC for further evaluation and observation, as well as medication stabilization. Requested a Valproic Acid level from Hospitalist. Patient will be reevaluated tomorrow.
--- NOTE | 2016-07-17 17:51 | DRAGON STRESS TEST REPORT ---
INTRAVENOUS LEXISCAN CARDIOLITE STRESS TEST USING SINGLE PHOTON EMMISION COMPUTERIZED TOMOGRAPHIC. DATE OF PROCEDURE: July 17, 2016 INDICATION : Ventricular dysrhythmia CARDIAC RISK FACTORS: Smoking, family history RESTING EKG: Sinus rhythm, without any significant baseline ST segment changes. STRESS EKG: No significant changes noted with LexiScan bolus REASON FOR TERMINATION: Protocol. PROCEDURE REPORT: Baseline heart rate 65 beats per minute with blood pressure of 124/64. Patient had no significant complaints. Heart rate at 2 minutes post bolus 103 with a blood pressure of 129/45. 3 minutes post bolus heart rate 95 with blood pressure of 114/53. No significant EKG changes were noted. Patient had no significant complaints during the procedure or postprocedure. CONCLUSIONS: Normal EKG and hemodynamic response to IV LexiScan. NUCLEAR DATA: At rest the patient was given 11.20 millicuries of technetium 99 sestamibi injected intravenously. As per protocol rest gated SPECT images were obtained. Subsequently the patient was given intravenous LexiScan at a dose of 0.4 mg in 5 mL intravenously, followed by flush with normal saline. Subsequently the stress dose of 34.2 millicuries of technetium 99 sestamibi was injected intravenously. As per protocol stress gated images were obtained. NUCLEAR INTERPRETATION: Both raw and processed data were used for interpretation. Visual, qualitative, computer-generated quantitative data was used. There was good myocardial uptake of technetium compound. Motion artifact and soft tissue attenuations were noted. Increased visceral uptake was noted. Borderline decreased uptake noted in the mid inferior wall in stress imaging however this is felt to be related to differences in diaphragmatic attenuation and visceral substraaction. No definitive areas of transient perfusion defect noted. No definitive areas of fixed perfusion defect or scars noted. EKG gated imaging showed LV EF at 46 %, rest and stress gated EF similar visually. T. I D. ratio was 1.10. Lung heart ratio noted to be within normal limits 0.30. No significant extracardiac and abnormal radiotracer activities were noted. RV free wall uptake was noted to be increased. IMPRESSION: Also refer to comments under nuclear interpretation. Also test results needs to be interpreted in the context of pretest probability. 1. There is no definitive scintigraphic evidence of LexiScan induced myocardial ischemia. 2. There is no definitive scintigraphic evidence of myocardial infarction/scar. 3. EKG gated imaging shows left ejection fraction of approximately 43 %. 4. Clinical correlation requested as occasionally single vessel disease or balanced ischemia could be missed. In approximately 10% of the cases Lexiscan may not cause adequate vasodilatory stress. RECOMMENDATIONS: Aggressive risk factor modification, medical therapy. Clinical correlation with echocardiogram derived ejection fraction. Inability to exercise by itself can lead to increased cardiovascular event risks. Consider cardiology consultation and or follow-up if clinically indicated. I AM AVAILABLE FOR CARDIOLOGY CONSULTATION AND FOLLOWUP IF REQUESTED BY PMD Denise Burleson M.D., BENNY Administrative Job Titles project engineering manager, Board certified in cardiovascular diseases, Nuclear cardiology, Echocardiography Cardiac CT and cardiac MRI Ph. [phone] [place]
[2016-07-18] MEDS: ENOXAPARIN SODIUM INJ 40 MG/0.4 ML DISP.SYRIN SUBCUT SCH (07:51)
--- NOTE | 2016-07-18 08:30 | EKG REPORT ---
SEVERITY:- BORDERLINE ECG - SINUS RHYTHM PROBABLE LEFT ATRIAL ABNORMALITY ST ELEV, PROBABLE NORMAL EARLY REPOL PATTERN : Confirmed by: Kendall Wylie MD 18-Jul-2016 08:30:22
[2016-07-18] MEDS: DIVALPROEX SODIUM 500 MG TAB.SR.24H PO SCH ×2 (10:15→17:38)
[2016-07-18] MEDS: FLUOXETINE HCL 20 MG/5 ML UDCUP PO SCH (10:16)
[2016-07-18] MEDS: OLANZAPINE 5 MG TABLET PO SCH ×2 (10:16→17:38)
[2016-07-18] MEDS: BENZTROPINE MESYLATE 1 MG TABLET PO SCH (10:16)
--- NOTE | 2016-07-18 16:54 | PDOC PROGRESS REPORT ---
Subjective Progress Note for:: 07/18/16 Subjective:: Reason for visit: Follow-up chest pain and homicidal ideations Hospital course: Per H&P "GULSHAN RUIZ is a 31 year old male past medical history PTSD, depression, presents on and IVC filled out by his girlfriend after he is having homicidal ideation. He thinks that there is a terrorist up [place] that is building a pipe bomb. His girlfriend has multiple text messages and voicemails that confirm his homicidal ideation. Patient states that he has no SI or HI and that he has a job interview tomorrow. He then states that he was having homicidal ideation, but this is resolving because he is not traveling is much any more. He denies any other medical complaints at this time. While being evaluated in the ED patient was noted to be bradycardic with a heart rate in the 40s and at time he was in trigeminy Cardiology consultation was obtained with Dr. Burleson who advised admission for observation And an echocardiogram was ordered Patient has no chest pain no short of breath His EKG is normal ; his initial troponins are normal he was subsequently admitted under hospitalist service to telemetry unit for observation Patient is IVC with a sitter" Patient was admitted overnight and monitored on telemetry demonstrating cardiac dysrhythmia with occasional trigeminy and multiple PVCs. He underwent cardiology consult who recommended echocardiogram and Cardiolite stress test. Echocardiogram shows borderline concentric left ventricle hypertrophy, trace mild mitral regurgitation and no other significant abnormalities. Stress test results are still pending as of this dictation. Mental [facility] has evaluated patient and is currently recommending inpatient management once we clear him from a cardiac standpoint. I did not broach the subject of his homicidal and suicidal ideations as he quickly became quite agitated. He currently denies chest pain or palpitations. His reports that he continues to speak of confronting the terrorist with a pipe bomb in [place] and that he intends to get out of this facility and "disappeared" until he can take care of business. Subjective: sleeping and really not interested in interacting with me this morning Physical Exam Vital Signs: Temp Pulse Resp BP Pulse Ox 98.4 F 57 L 16 118/66 99 07/18/16 15:11 07/18/16 15:11 07/18/16 15:11 07/18/16 15:11 07/18/16 15:11 Intake & Output 07/17/16 07/18/16 07/19/16 06:59 06:59 06:59 Intake Total 305 685 Balance 305 685 Weight 76.8 kg 76.2 kg General appearance: PRESENT: no acute distress Head exam: PRESENT: atraumatic Eye exam: PRESENT: EOMI. ABSENT: conjunctival injection Mouth exam: PRESENT: moist Neck exam: ABSENT: tracheal deviation Respiratory exam: PRESENT: unlabored. ABSENT: accessory muscle use Cardiovascular exam: PRESENT: bradycardia - Noted on the monitor Musculoskeletal exam: PRESENT: full ROM Results Laboratory Results: 07/16/16 07/16/16 17:08 23:37 Troponin I < 0.012 < 0.012 Assessment & Plan - Diagnosis (1) Bradycardia Is this a current diagnosis for this admission?: YesPlan: Stress test negative for ischemia, cardiac enzymes negative for ischemia, appreciate cardiology's input. Patient currently asymptomatic regarding his bradycardia. Avoid AV ajith blocking agents. (2) Homicidal ideation Is this a current diagnosis for this admission?: Yes (3) PTSD (post-traumatic stress disorder) Is this a current diagnosis for this admission?: Yes (4) Suicidal ideation Is this a current diagnosis for this admission?: Yes (5) Tobacco abuse Is this a current diagnosis for this admission?: Yes - Time Time Spent with patient: Less than 15 minutes - Plan Summary Plan Summary: This patient likely has a resting heart rate in the 50s the drops into the 40s while sleeping. He is completely asymptomatic. He is ruled out for acute coronary disease and therefore is medically cleared for psychiatric placement.
--- NOTE | 2016-07-18 20:11 | PDOC PROGRESS REPORT ---
Subjective Progress Note for:: 07/17/16 Subjective:: Patient seems to be doing better with gradual improvement. Pt is denying any chest arm or neck discomfort. Patient denying any PND, orthopnea. Patient denied any sustained palpitations, dizziness, syncope, near syncope. Patient denying any fever chills. Patient denying any other significant discomfort. Patient is maintaining sinus rhythm. Intermittent ventricular trigeminy and rare bigeminy noted. Review of systems: Rest review of systems negative. Medications: Medications have been reviewed. Nuclear stress test procedure was explained to the patient in detail. Risks benefits were discussed and informed consent was obtained. Alternatives were discussed. Patient informed that based on risk factors, physical exam, lab data findings and symptoms there is at least intermediate probability of underlying CAD. Nuclear stress test procedure was therefore scheduled. Physical Exam Vital Signs: Temp Pulse Resp BP Pulse Ox 98.2 F 56 L 16 123/62 97 07/17/16 15:34 07/17/16 15:34 07/17/16 15:34 07/17/16 15:34 07/17/16 15:34 Intake & Output 07/16/16 07/17/16 07/18/16 06:59 06:59 06:59 Intake Total 305 125 Balance 305 125 Weight 76.8 kg Exam: GENERAL: well-nourished and in no acute distress. Alert and oriented x3 HEAD: Atraumatic, normocephalic. EYES: Pupils equal round and reactive to light, extraocular movements intact, sclera anicteric, conjunctiva are normal. ENT: TMs normal, nares patent, oropharynx clear without exudates. Moist mucous membranes. No oral ulcerations or bleeding gums noted NECK: supple without lymphadenopathy. Trachea is central. No cervical or axillary lymphadenopathy noted. Carotids are 2+, JVD WNL LUNGS: Respiration seems nonlabored, no significant accessory muscle action noted. Breath sounds clear to auscultation bilaterally and equal noted. No wheezes rales or rhonchi noted. No significant dullness noted on percussion. CHEST: Palpation of the chest wall shows no significant chest wall tenderness. No other significant abnormalities noted. 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 ABDOMEN: Soft, no significant tenderness appreciated, normoactive bowel sounds. No guarding, no rebound. No rigidity noted . No masses appreciated. EXTREMITIES: Pedal pulses are 1-2+, no calf tenderness noted. No clubbing or cyanosis.trace to 1+ pedal edema noted NEUROLOGICAL: Focused neurological exam showed no significant neurologic deficit. Normal speech, no focal weakness appreciated. PSYCH: Normal mood, normal affect. Judgment and insight possibly impaired. Patient does have history of suicidal and homicidal ideation. SKIN: No significant ecchymosis, rash, ulcerations or signs of pruritus noted. MUSCULOSKELETAL EXAM: No significant joint swelling noted. Results Laboratory Results: 07/17/16 07/17/16 05:17 05:17 Triglycerides 88 Cholesterol 146.05 LDL Cholesterol Direct 87 VLDL Cholesterol 18.0 HDL Cholesterol 32 L TSH 0.86 07/16/16 07/16/16 17:08 23:37 Troponin I < 0.012 < 0.012 Impressions: Chest X-Ray 07/17/16 12:46 IMPRESSION: NO SIGNIFICANT RADIOGRAPHIC FINDING IN THE CHEST. Status: Image reviewed by me - Nuclear stress test discussed and reviewed Assessment & Plan - Diagnosis (1) Bradycardia Is this a current diagnosis for this admission?: Yes (2) Cardiac arrhythmia Qualifiers: Arrhythmia type: unspecified cardiac arrhythmia Qualified Code(s): I49.9 - Cardiac arrhythmia, unspecified Is this a current diagnosis for this admission?: Yes (3) Homicidal ideation Is this a current diagnosis for this admission?: Yes (4) PTSD (post-traumatic stress disorder) Is this a current diagnosis for this admission?: Yes (5) Suicidal ideation Is this a current diagnosis for this admission?: Yes (6) Tobacco abuse Is this a current diagnosis for this admission?: Yes - Notes Notes: Bradycardia: Stable. Patient is asymptomatic. Cardiac dysrhythmia: Patient has increased ventricular ectopy but these are mostly unifocal and asymptomatic. LVEF is within normal limits. Nuclear stress test is negative for ischemia. Discussed that these are unlikely to outpatient. Patient is tolerating psycho active medication. PTSD disorder: Stable Suicidal and homicidal ideation: Patient being followed by psychiatrist. Tobacco abuse: Currently stable.. - Time Time with patient: Greater than 35 minutes - CODE STATUS was discussed, patient remains full code. Surrogate decision-maker unchanged. Multiple medical problems were addressed.More than 50% of the time spent coordinating care, discussing management plans with involved caregivers. Management plans discussed with involved personnels. Medical decision making was of moderate complexity.Patient was seen multiple times. Total time exceeds 40 minutes. In the morning nuclear stress test procedure, risks benefits, alternatives were discussed. Patient seen during the stress test. Patient also seen after stress test when results were discussed with the patient in detail. Patient's questions were answered. Nuclear stress test results were discussed with the patient. Patient was informed that no definitive evidence of pharmacologic stress-induced ischemia noted. No definite fixed defects were noted. Patient informed that occasionally significant single vessel disease or balanced ischemia could be missed. However based on the current study results, would recommend aggressive risk factor modification and medical therapy. It may also be worthwhile to consider evaluation or empiric management of other causes of chest pain. Should no other cause be found and if persistent in having chest pain, then cardiac catheterization should be considered. Right now, recommendations are for aggressive risk factor modification and medical management. Medications reviewed and adjusted accordingly: Yes
--- NOTE | 2016-07-18 20:14 | PDOC PROGRESS REPORT ---
Subjective Progress Note for:: 07/18/16 Subjective:: Patient seems to be doing better.. Pt is denying any chest arm or neck discomfort. Patient denying any PND, orthopnea. Patient denied any sustained palpitations, dizziness, syncope, near syncope. Patient denying any fever chills. Patient denying any other significant discomfort. Patient is maintaining sinus rhythm. Intermittent ventricular trigeminy noted. Review of systems: Rest review of systems negative. Medications: Medications have been reviewed. Physical Exam Vital Signs: Temp Pulse Resp BP Pulse Ox 98.4 F 57 L 16 118/66 99 07/18/16 15:11 07/18/16 15:11 07/18/16 15:11 07/18/16 15:11 07/18/16 15:11 Intake & Output 07/17/16 07/18/16 07/19/16 06:59 06:59 06:59 Intake Total 305 685 505 Balance 305 685 505 Weight 76.8 kg 76.2 kg Exam: GENERAL: well-nourished and in no acute distress. Alert and oriented x3 HEAD: Atraumatic, normocephalic. EYES: Pupils equal round and reactive to light, extraocular movements intact, sclera anicteric, conjunctiva are normal. ENT: TMs normal, nares patent, oropharynx clear without exudates. Moist mucous membranes. No oral ulcerations or bleeding gums noted NECK: supple without lymphadenopathy. Trachea is central. No cervical or axillary lymphadenopathy noted. Carotids are 2+, JVD WNL LUNGS: Respiration seems nonlabored, no significant accessory muscle action noted. Breath sounds clear to auscultation bilaterally and equal noted. No wheezes rales or rhonchi noted. No significant dullness noted on percussion. CHEST: Palpation of the chest wall shows no significant chest wall tenderness. No other significant abnormalities noted. 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 ABDOMEN: Soft, no significant tenderness appreciated, normoactive bowel sounds. No guarding, no rebound. No rigidity noted . No masses appreciated. EXTREMITIES: Pedal pulses are 1-2+, no calf tenderness noted. No clubbing or cyanosis.trace to 1+ pedal edema noted NEUROLOGICAL: Focused neurological exam showed no significant neurologic deficit. Normal speech, no focal weakness appreciated. PSYCH: Normal mood, normal affect. Judgment and insight possibly impaired SKIN: No significant ecchymosis, rash, ulcerations or signs of pruritus noted. MUSCULOSKELETAL EXAM: No significant joint swelling noted. Results Laboratory Results: 07/16/16 07/16/16 17:08 23:37 Troponin I < 0.012 < 0.012 Impressions: Chest X-Ray 07/17/16 12:46 IMPRESSION: NO SIGNIFICANT RADIOGRAPHIC FINDING IN THE CHEST. Assessment & Plan - Diagnosis (1) Bradycardia Is this a current diagnosis for this admission?: Yes (2) Cardiac arrhythmia Qualifiers: Arrhythmia type: unspecified cardiac arrhythmia Qualified Code(s): I49.9 - Cardiac arrhythmia, unspecified Is this a current diagnosis for this admission?: Yes (3) Homicidal ideation Is this a current diagnosis for this admission?: Yes (4) PTSD (post-traumatic stress disorder) Is this a current diagnosis for this admission?: Yes (5) Suicidal ideation Is this a current diagnosis for this admission?: Yes (6) Tobacco abuse Is this a current diagnosis for this admission?: Yes - Notes Notes: Cardiac dysrhythmia: Stable without any sustained tachycardia arrhythmia. Patient has mild sinus bradycardia but asymptomatic. Nuclear stress test results were again reviewed with the patient. Monitor strips were all reviewed. Patient advised on tobacco cessation. Elevation seems to be tolerating antipsychotic medications. - Time Time with patient: 15-25 minutes Medications reviewed and adjusted accordingly: Yes
[2016-07-19] MEDS: ENOXAPARIN SODIUM INJ 40 MG/0.4 ML DISP.SYRIN SUBCUT SCH (08:37)
[2016-07-19] MEDS: DIVALPROEX SODIUM 500 MG TAB.SR.24H PO SCH ×2 (10:36→18:34)
[2016-07-19] MEDS: BENZTROPINE MESYLATE 1 MG TABLET PO SCH (10:36)
[2016-07-19] MEDS: OLANZAPINE 5 MG TABLET PO SCH ×2 (10:37→18:34)
[2016-07-19] MEDS: FLUOXETINE HCL 20 MG/5 ML UDCUP PO SCH (10:37)
--- NOTE | 2016-07-19 14:23 | PDOC PROGRESS REPORT ---
Subjective Progress Note for:: 07/19/16 Subjective:: Reason for visit: Follow-up chest pain and homicidal ideations Hospital course: Per H&P "GULSHAN RUIZ is a 31 year old male past medical history PTSD, depression, presents on and IVC filled out by his girlfriend after he is having homicidal ideation. He thinks that there is a terrorist up [place] that is building a pipe bomb. His girlfriend has multiple text messages and voicemails that confirm his homicidal ideation. Patient states that he has no SI or HI and that he has a job interview tomorrow. He then states that he was having homicidal ideation, but this is resolving because he is not traveling is much any more. He denies any other medical complaints at this time. While being evaluated in the ED patient was noted to be bradycardic with a heart rate in the 40s and at time he was in trigeminy Cardiology consultation was obtained with Dr. Burleson who advised admission for observation And an echocardiogram was ordered Patient has no chest pain no short of breath His EKG is normal ; his initial troponins are normal he was subsequently admitted under hospitalist service to telemetry unit for observation Patient is IVC with a sitter" Patient was admitted overnight and monitored on telemetry demonstrating cardiac dysrhythmia with occasional trigeminy and multiple PVCs. He underwent cardiology consult who recommended echocardiogram and Cardiolite stress test. Echocardiogram shows borderline concentric left ventricle hypertrophy, trace mild mitral regurgitation and no other significant abnormalities. Stress test results are negative. His HR fluctuates with his sleep/wake cycle but he is asymptomatic during his bradycardia. Mental health has evaluated patient and is currently recommending inpatient management; he is for placement from a cardiac standpoint. He currently denies chest pain or palpitations. His reports that he continues to speak of confronting the terrorist with a pipe bomb in [place] and that he intends to get out of this facility and "disappear" until he can take care of business. Subjective: He now denies suicidal or homicidal ideations, states we are costing him financially by forcing him to miss several job interviews this week and he is insistent that we discharge him home so that he can "take care of business". Physical Exam Vital Signs: Temp Pulse Resp BP Pulse Ox 97.5 F 77 18 140/87 H 98 07/19/16 11:24 07/19/16 11:24 07/19/16 11:24 07/19/16 11:24 07/19/16 11:24 Intake & Output 07/18/16 07/19/16 07/20/16 06:59 06:59 06:59 Intake Total 685 732 Output Total 0 Balance 685 732 Weight 76.2 kg 74.8 kg General appearance: PRESENT: no acute distress - Easily agitated Eye exam: PRESENT: EOMI, PERRLA Mouth exam: PRESENT: moist Respiratory exam: PRESENT: unlabored. ABSENT: accessory muscle use Cardiovascular exam: PRESENT: bradycardia - At times, RRR GI/Abdominal exam: PRESENT: soft Neurological exam: PRESENT: alert, awake, oriented to person, oriented to place , oriented to time. ABSENT: oriented to situation Psychiatric exam: PRESENT: agitated Results Laboratory Results: 07/16/16 07/16/16 17:08 23:37 Troponin I < 0.012 < 0.012 Impressions: Chest X-Ray 07/17/16 12:46 IMPRESSION: NO SIGNIFICANT RADIOGRAPHIC FINDING IN THE CHEST. Assessment & Plan - Diagnosis (1) Bradycardia Is this a current diagnosis for this admission?: YesPlan: Stress test negative for ischemia, cardiac enzymes negative for ischemia, appreciate cardiology's input. Patient currently asymptomatic regarding his bradycardia. Avoid AV ajith blocking agents. Stable for psychiatric placement (2) Homicidal ideation Is this a current diagnosis for this admission?: YesPlan: I believe he is still a threat to others as well as to himself and will continue involuntary commitment until appropriate placement can be made. (3) PTSD (post-traumatic stress disorder) Is this a current diagnosis for this admission?: YesPlan: As above. Continue Depakote. (4) Suicidal ideation Is this a current diagnosis for this admission?: Yes (5) Tobacco abuse Is this a current diagnosis for this admission?: Yes - Time Time Spent with patient: 15-24 minutes
--- NOTE | 2016-07-19 19:49 | PDOC PROGRESS REPORT ---
Subjective Progress Note for:: 07/19/16 Subjective:: Patient seems to be doing better.. Pt is denying any chest arm or neck discomfort. Patient denying any PND, orthopnea. Patient denied any sustained palpitations, dizziness, syncope, near syncope. Patient denying any fever chills. Patient denying any other significant discomfort. Patient is maintaining sinus rhythm. Patient maintaining mild sinus bradycardia on rhythm strips. No significant ventricular ectopy said noted. Review of systems: Rest review of systems negative. Medications: Medications have been reviewed. Physical Exam Vital Signs: Temp Pulse Resp BP Pulse Ox 98.0 F 66 18 132/75 H 97 07/19/16 15:07 07/19/16 19:00 07/19/16 15:07 07/19/16 15:07 07/19/16 15:07 Intake & Output 07/18/16 07/19/16 07/20/16 06:59 06:59 06:59 Intake Total 685 732 475 Output Total 0 Balance 685 732 475 Weight 76.2 kg 74.8 kg Exam: GENERAL: well-nourished and in no acute distress. Alert and oriented x3 HEAD: Atraumatic, normocephalic. EYES: Pupils equal round and reactive to light, extraocular movements intact, sclera anicteric, conjunctiva are normal. ENT: TMs normal, nares patent, oropharynx clear without exudates. Moist mucous membranes. No oral ulcerations or bleeding gums noted NECK: supple without lymphadenopathy. Trachea is central. No cervical or axillary lymphadenopathy noted. Carotids are 2+, JVD WNL LUNGS: Respiration seems nonlabored, no significant accessory muscle action noted. Breath sounds clear to auscultation bilaterally and equal noted. No wheezes rales or rhonchi noted. No significant dullness noted on percussion. CHEST: Palpation of the chest wall shows no significant chest wall tenderness. No other significant abnormalities noted. 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 ABDOMEN: Soft, no significant tenderness appreciated, normoactive bowel sounds. No guarding, no rebound. No rigidity noted . No masses appreciated. EXTREMITIES: Pedal pulses are 1-2+, no calf tenderness noted. No clubbing or cyanosis.negative pedal edema noted NEUROLOGICAL: Focused neurological exam showed no significant neurologic deficit. Normal speech, no focal weakness appreciated. PSYCH: Normal mood, normal affect. Judgment and insight are impaired. SKIN: No significant ecchymosis, rash, ulcerations or signs of pruritus noted. MUSCULOSKELETAL EXAM: No significant joint swelling noted. Results Laboratory Results: 07/16/16 07/16/16 17:08 23:37 Troponin I < 0.012 < 0.012 Impressions: Chest X-Ray 07/17/16 12:46 IMPRESSION: NO SIGNIFICANT RADIOGRAPHIC FINDING IN THE CHEST. Assessment & Plan - Diagnosis (1) Bradycardia Is this a current diagnosis for this admission?: Yes (2) Cardiac arrhythmia Qualifiers: Arrhythmia type: unspecified cardiac arrhythmia Qualified Code(s): I49.9 - Cardiac arrhythmia, unspecified Is this a current diagnosis for this admission?: Yes (3) Homicidal ideation Is this a current diagnosis for this admission?: Yes (4) PTSD (post-traumatic stress disorder) Is this a current diagnosis for this admission?: Yes (5) Suicidal ideation Is this a current diagnosis for this admission?: Yes (6) Tobacco abuse Is this a current diagnosis for this admission?: Yes - Notes Notes: Bradycardia: Asymptomatic and not severe. Patient has been observed for last several days and has done well. Cardiac dysrhythmia: Ventricular ectopics are is stable to improved. Patient had no prior syncope near syncope or sustained palpitations. 2-D echo and nuclear stress test suggests low risk. PTSD and other psychiatric problems: Stable. Patient has been stable for last few days. Patient has tolerated his psychotropic medication. We will sign off. Please reconsult if needed. - Time Time with patient: 15-25 minutes
[2016-07-19] MEDS ORDERED: ACETAMINOPHEN 325 MG TABLET PO PRN (21:33)
[2016-07-19] MEDS ORDERED: ACETAMINOPHEN 325 MG TABLET ONE (21:53)
[2016-07-20] MEDS: DIVALPROEX SODIUM 500 MG TAB.SR.24H PO SCH ×2 (08:27→17:15)
[2016-07-20] MEDS: BENZTROPINE MESYLATE 1 MG TABLET PO SCH (08:28)
[2016-07-20] MEDS: OLANZAPINE 5 MG TABLET PO SCH ×2 (08:28→17:15)
[2016-07-20] MEDS: FLUOXETINE HCL 20 MG/5 ML UDCUP PO SCH (08:29)
[2016-07-20] MEDS: ENOXAPARIN SODIUM INJ 40 MG/0.4 ML DISP.SYRIN SUBCUT SCH (08:30)
--- NOTE | 2016-07-20 14:11 | PDOC PROGRESS REPORT ---
Subjective Progress Note for:: 07/20/16 Subjective:: Reason for visit: Follow-up chest pain and homicidal ideations Hospital course: Per H&P "GULSHAN RUIZ is a 31 year old male past medical history PTSD, depression, presents on and IVC filled out by his girlfriend after he is having homicidal ideation. He thinks that there is a terrorist up [place] that is building a pipe bomb. His girlfriend has multiple text messages and voicemails that confirm his homicidal ideation. Patient states that he has no SI or HI and that he has a job interview tomorrow. He then states that he was having homicidal ideation, but this is resolving because he is not traveling is much any more. He denies any other medical complaints at this time. While being evaluated in the ED patient was noted to be bradycardic with a heart rate in the 40s and at time he was in trigeminy Cardiology consultation was obtained with Dr. Burleson who advised admission for observation And an echocardiogram was ordered Patient has no chest pain no short of breath His EKG is normal ; his initial troponins are normal he was subsequently admitted under hospitalist service to telemetry unit for observation Patient is IVC with a sitter" Patient was admitted overnight and monitored on telemetry demonstrating cardiac dysrhythmia with occasional trigeminy and multiple PVCs. He underwent cardiology consult who recommended echocardiogram and Cardiolite stress test. Echocardiogram shows borderline concentric left ventricle hypertrophy, trace mild mitral regurgitation and no other significant abnormalities. Stress test results are negative. His HR fluctuates with his sleep/wake cycle but he is asymptomatic during his bradycardia. Mental health has evaluated patient and is currently recommending inpatient management; he is cleared for placement from a cardiac standpoint. His reports that he continues to speak of confronting the terrorist with a pipe bomb in [place] and that he intends to get out of this facility and "disappear" until he can take care of business. Subjective: He now denies suicidal or homicidal ideations, states we are costing him financially by forcing him to miss several job interviews this week and he is insistent that we discharge him home so that he can "take care of business". Physical Exam Vital Signs: Temp Pulse Resp BP Pulse Ox 97.9 F 68 12 133/95 H 100 07/20/16 10:53 07/20/16 10:53 07/20/16 12:06 07/20/16 10:53 07/20/16 10:53 Intake & Output 07/19/16 07/20/16 07/21/16 06:59 06:59 06:59 Intake Total 732 718 400 Output Total 0 Balance 732 718 400 Weight 74.8 kg 74.1 kg General appearance: PRESENT: no acute distress Head exam: PRESENT: normocephalic Eye exam: PRESENT: EOMI Mouth exam: PRESENT: moist Respiratory exam: PRESENT: unlabored. ABSENT: accessory muscle use Cardiovascular exam: PRESENT: bradycardia - On the monitor heart rate in the high 50s Extremities exam: PRESENT: full ROM Musculoskeletal exam: PRESENT: ambulatory Neurological exam: PRESENT: alert, awake Focused psych exam: PRESENT: restlessness Results Laboratory Results: 07/16/16 07/16/16 17:08 23:37 Troponin I < 0.012 < 0.012 Impressions: Chest X-Ray 07/17/16 12:46 IMPRESSION: NO SIGNIFICANT RADIOGRAPHIC FINDING IN THE CHEST. Assessment & Plan - Diagnosis (1) Bradycardia Is this a current diagnosis for this admission?: YesPlan: Stress test negative for ischemia, cardiac enzymes negative for ischemia, appreciate cardiology's input. Patient currently asymptomatic regarding his bradycardia. Avoid AV ajith blocking agents. Stable for psychiatric placement (2) Homicidal ideation Is this a current diagnosis for this admission?: YesPlan: I believe he is still a threat to others as well as to himself and will continue involuntary commitment until appropriate placement can be made. (3) PTSD (post-traumatic stress disorder) Is this a current diagnosis for this admission?: YesPlan: As above. Continue Depakote, he has achieved therapeutic levels. (4) Suicidal ideation Is this a current diagnosis for this admission?: Yes (5) Tobacco abuse Is this a current diagnosis for this admission?: Yes - Time Time Spent with patient: Less than 15 minutes
--- NOTE | 2016-07-20 15:32 | PSYCHOLOGICAL NOTE ---
Psych Note - Psych Note Psych Note: Patient presented to [facility] ED under IVC for SI/HI and who has also been admitted to the [facility] Hospitalist's Services for concerns related to his cardiovascular health. Patient demonstrated mood lability and difficulty self regulating when upset after admission. There was a noted episode of patient yelling at his , who was then escorted out of room for safety. 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 Note, played a recording of patient threatening murder suicide in regards to his girlfriend's friend he thinks is a terrorist. She additionally reports he is irrational and can be violent, towards self, property, people, and animals ( family dogs). She states today he abruptly stated he was returning to [place], and his girlfriend contacted her with concerns for safety. Note, had numerous text messages substantiating concerns. She denies knowing of SA, beyond daily ETOH and chain smoking cigarettes while on his phone outside. She states he returned from [place] to get help 2 weeks ago, and [facility]. Check in Patient today states he is ready to go because he has things to do. He states that he needs to go help a friend and find a job. He continued to disclose that [facility]. When asked how the patient has been feeling, the patient states he has been sleeping because there is nothing else to do and he is stuck here. Patient states he is at [facility] only because his ex-girl friend "can't keep her nose out of things." When asked to explain, he stated that "there is nothing I can do about the one issue and I was just going to help a friend move not for what she was thinking." The patient refused to elaborate on this information, and took a relaxed pose with his arms behind his head. Clinician spoke with [facility] and confirmed that the patient has an appointment on Saturday07/24/2015 at 1 pm with psychologist. Patient is alert and oriented to person, place, time and circumstances. Mood is irritable with labile affect. Patient denies suicidal and homicidal ideation. Patient denies auditory and visual hallucinations; no delusions are noted. Thought process is organized and linear. Thought content is guarded and patronizing. Conversational speech is condescending. Eye contact was well maintained. Intellectual abilities appear to be within average range. Attention and concentration are good. Insight, judgment and impulse control are good. 309.81 (F43.10) Posttraumatic Stress Disorder, per history Patient is recommended to remain under IVC for further evaluation and observation, as well as medication stabilization. Requested a Valproic Acid level indicates levels are not at therapeutic levels. Patient is recommended for in patient treatment. Dr. Umana was consulted on the care and management of this patient; attending physician is in agreement with recommendations and disposition.
--- NOTE | 2016-07-20 15:35 | PSYCHOLOGICAL NOTE ---
Psych Note - Psych Note Psych Note: Patient presented to [facility] ED under IVC for SI/HI and who has also been admitted to the [facility] Hospitalist's Services for concerns related to his cardiovascular health. Patient demonstrated mood lability and difficulty self regulating when upset after admission. There was a noted episode of patient yelling at his , who was then escorted out of room for safety. 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 Note, played a recording of patient threatening murder suicide in regards to his girlfriend's friend he thinks is a terrorist. She additionally reports he is irrational and can be violent, towards self, property, people, and animals ( family dogs). She states today he abruptly stated he was returning to [place], and his girlfriend contacted her with concerns for safety. Note, had numerous text messages substantiating concerns. She denies knowing of SA, beyond daily ETOH and chain smoking cigarettes while on his phone outside. She states he returned from [place] to get help 2 weeks ago, and [facility]. Clinician conducted a chart review Patient is noted to be calmer today. attempting to locate placement. 309.81 (F43.10) Posttraumatic Stress Disorder, per history Patient is recommended to remain under IVC for further evaluation and observation, as well as medication stabilization. Requested a Valproic Acid level indicates levels are not at therapeutic levels. Patient is recommended for in patient treatment. Dr. Umana was consulted on the care and management of this patient; attending physician is in agreement with recommendations and disposition.
[2016-07-21] MEDS: ENOXAPARIN SODIUM INJ 40 MG/0.4 ML DISP.SYRIN SUBCUT SCH (07:49)
--- NOTE | 2016-07-21 07:55 | PSYCHOLOGICAL NOTE ---
Psych Note - Psych Note Psych Note: Patient presented to [facility] ED under IVC for SI/HI and who has also been admitted to the [facility] Hospitalist's Services for concerns related to his cardiovascular health. Patient demonstrated mood lability and difficulty self regulating when upset after admission. There was a noted episode of patient yelling at his , who was then escorted out of room for safety. 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 Note, played a recording of patient threatening murder suicide in regards to his girlfriend's friend he thinks is a terrorist. She additionally reports he is irrational and can be violent, towards self, property, people, and animals ( family dogs). She states today he abruptly stated he was returning to [place], and his girlfriend contacted her with concerns for safety. Note, had numerous text messages substantiating concerns. She denies knowing of SA, beyond daily ETOH and chain smoking cigarettes while on his phone outside. She states he returned from [place] to get help 2 weeks ago, and was started on [place] 10 mg by the [place] this past week. Check in Patient today states he is just ready to get out and start looking for a job. he continued to state that he made comments in anger and asked the clinician if that was so abnormal. The patient was asked to explain the comments about a terrorist, and he stated that "friend" has a habit of getting into the wrong crowd and she was talking with a calvin. The patient continued to disclose that this calvin has a record of making bombs in the past and feels that anyone with a record like that is a terrorist. He continued to state that he call the front maker next time. When asked about comments he stated to his about bringing the SUV to him so she would never see him again, he stated that he meant that he would leave the area and live somewhere else, not that he would harm himself. 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 He stated that he did not do it all the time but he was depressed and there is "just something thrilling about being up there and known it is just you holding on." Patient admits to not "being happy" with his because he has been sitting in the hospital but adamantly denies wanting to harm her or their child. He states that he has never hit a women in his life and would never. He continued to disclose that he does think his is afraid of his temper but still doesn't understand why because he would never hurt her. Patient is alert and oriented to person, place, time and circumstances. Mood is euthymic with congruent affect. Patient denies suicidal and homicidal ideation. Patient denies auditory and visual hallucinations; no delusions are noted. Thought process is organized and linear. Thought content is focused on getting a job. Conversational speech is within normal rate tone and prosody. Eye contact was well maintained. Intellectual abilities appear to be within average range. Attention and concentration are good. Insight, judgment and impulse control are good. 309.81 (F43.10) Posttraumatic Stress Disorder, per history Patient is recommended to rescind of IVC; he no longer meet criteria per [place] GS 122C. lab work indicates that patient is at therapeutic levels for his prescribed Depakote for approximately the past 2 days. Clinician spoke with [facility] and confirmed that the patient has an appointment on Saturday07/24/2015 at 1 pm with psychologist. Clinician notes that the patient has made numerous vague comments that could be taken as threats. Once asked to explain the patient initially continued to be vague; however, today the patient was willing to engage with the clinician. At this time it is believed that the patient uses vague comments as a way to manipulate and control others emotions for an unknown secondary gain. Clinician notes that the [place] health provider and team for the patient was aware of the patient's concerns and did not feel [facility] was necessary [facility]. The patient is psychiatrically clear for discharge and is recommended to follow up with his [facility] provider. Dr. Umana was consulted on the care and management of this patient; attending physician is not agreement with recommendations and disposition.
[2016-07-21 08:04] VITALS: BP 130/85
[2016-07-21] MEDS: OLANZAPINE 5 MG TABLET PO SCH (09:01)
[2016-07-21] MEDS: FLUOXETINE HCL 20 MG/5 ML UDCUP PO SCH (09:01)
[2016-07-21] MEDS: DIVALPROEX SODIUM 500 MG TAB.SR.24H PO SCH (09:01)
[2016-07-21] MEDS: BENZTROPINE MESYLATE 1 MG TABLET PO SCH (09:01)
--- NOTE | 2016-07-21 18:06 | PDOC DISCHARGE SUMMARY ---
General - Admit/Disc Date/PCP Admission Date/Primary Care Provider: 07/16/16 15:36 [facility] Discharge Date: 07/21/16 - Discharge Diagnosis (1) Bradycardia Is this a current diagnosis for this admission?: YesSummary: Stress test negative for ischemia, cardiac enzymes negative for ischemia, appreciate cardiology's input. Patient currently asymptomatic regarding his bradycardia. Avoid AV ajith blocking agents. (2) Homicidal ideation Is this a current diagnosis for this admission?: YesSummary: Patient has been evaluated by mental health and they are satisfied his coping skills are appropriate and behaviors are well controlled on his current medical regimen recommending release from his involuntary commitment, discharge home with follow-up through the [facility] on Saturday as arranged. (3) PTSD (post-traumatic stress disorder) Is this a current diagnosis for this admission?: Yes (4) Suicidal ideation Is this a current diagnosis for this admission?: Yes (5) Tobacco abuse Is this a current diagnosis for this admission?: Yes - Additional Information Resuscitation Status: Full Code Discharge Diet: As Tolerated Discharge Activity: Activity As Tolerated, Balance Activity w/Rest, Slowly Increase Activity Home Medications: Benztropine Mesylate [Cogentin 1 mg Tablet] 1 mg PO DAILY #30 tablet 07/21/16 Divalproex Sodium [Depakote ER 500 mg Tab.sr] 500 mg PO BID #60 tab.sr.24h 07/21 Fluoxetine HCl [Prozac] 10 mg PO DAILY #30 capsule 07/21/16 Olanzapine [Zyprexa 5 mg Tablet] 5 mg PO BID #60 tablet 07/21/16 History of Present Illness Patient complains of: chest pain and homicidal ideations History of Present Illness: GULSHAN RUIZ is a 31 year old male past medical history PTSD, depression, presents on and IVC filled out by his girlfriend after he is having homicidal ideation. He thinks that there is a terrorist up [place] that is building a pipe bomb. His girlfriend has multiple text messages and voicemails that confirm his homicidal ideation. Patient states that he has no SI or HI and that he has a job interview tomorrow. He then states that he was having homicidal ideation , but this is resolving because he is not traveling is much any more. He denies any other medical complaints at this time. Hospital Course Hospital Course: While being evaluated in the ED patient was noted to be bradycardic with a heart rate in the 40s and at time he was in trigeminy Cardiology consultation was obtained with Dr. Burleson who advised admission for observation And an echocardiogram was ordered Patient has no chest pain no short of breath His EKG is normal ; his initial troponins are normal he was subsequently admitted under hospitalist service to telemetry unit for observation Patient is IVC with a sitter" Patient was admitted overnight and monitored on telemetry demonstrating cardiac dysrhythmia with occasional trigeminy and multiple PVCs. He underwent cardiology consult who recommended echocardiogram and Cardiolite stress test. Echocardiogram shows borderline concentric left ventricle hypertrophy, trace mild mitral regurgitation and no other significant abnormalities. Stress test results are negative. His HR fluctuates with his sleep/wake cycle but he is asymptomatic during his bradycardia. Mental health has evaluated patient and is currently recommending inpatient management; he is cleared for placement from a cardiac standpoint. His reports that he continues to speak of confronting the terrorist with a pipe bomb in [place] and that he intends to get out of this facility and "disappear" until he can take care of business. He was quickly medically cleared as noted above and has a resting heart rate in the low 50s to 60s and a sleeping heart rate in the 40s. He is completely asymptomatic. He was [facility] who initiated medications and monitored him on his response and they report to me he has had an appropriate response and they feel comfortable releasing him home to follow-up at the [facility]. Please see their notes for full details. His was reportedly notified by staff so that she can make appropriate arrangements. Physical Exam Vital Signs: Temp Pulse Resp BP Pulse Ox 97.6 F 60 16 130/85 H 100 07/21/16 10:24 07/21/16 10:24 07/21/16 10:24 07/21/16 10:24 07/21/16 10:24 Intake & Output 07/20/16 07/21/16 07/22/16 06:59 06:59 06:59 Intake Total 718 700 Balance 718 700 Weight 74.1 kg 74.3 kg General appearance: PRESENT: no acute distress Head exam: PRESENT: normocephalic Eye exam: PRESENT: EOMI Mouth exam: PRESENT: moist Respiratory exam: PRESENT: unlabored. ABSENT: accessory muscle use Cardiovascular exam: PRESENT: bradycardia - On the monitor heart rate in the high 50s Extremities exam: PRESENT: full ROM Musculoskeletal exam: PRESENT: ambulatory Neurological exam: PRESENT: alert, awake Focused psych exam: PRESENT: restlessness Results Laboratory Results: 07/16/16 07/16/16 17:08 23:37 Troponin I < 0.012 < 0.012 Impressions: Chest X-Ray 07/17/16 12:46 IMPRESSION: NO SIGNIFICANT RADIOGRAPHIC FINDING IN THE CHEST. Qualifiers PATEINT BEING DISCHARGED WITH ANY OF THE FOLLOWING DIAGNOSIS?: No VTE patient discharged on overlapping Therapy?: No Reason(s) for not prescribing Overlap Therapy:: Not indicated
== END 2016-07-21 12:28 | disposition home or self-care (01) ==
LOC: ER 14:55 → EH 07-16 15:36 → 3S 07-16 18:10 → 4S 07-20 10:29
PROVIDERS: ADMIT Emergency Medicine; ATTEND Emergency Medicine
DX: R00.1 Bradycardia, unspecified (principal); R45.851 Suicidal ideations; F43.10 Post-traumatic stress disorder, unspecified; R45.850 Homicidal ideations; F17.210 Nicotine dependence, cigarettes, uncomplicated; I49.3 Ventricular premature depolarization
CPT/HCPCS: 93005 ×4; 99285; 36415 ×4; 82553; 82550; 83735; 84443 ×2; 85025 ×2; 85652; 80053 ×2; 81001; 84484; 80164 ×2; 80307; 83036; 80061 ×2; 93306; 93017; 71020; 78452; 93010 ×4; G0378 ×7; A9500; J2785; J1630; J3490 ×10; J0280; Q9969